=== PATIENT | female | born 1990 | race Caucasian/White ===

== ENCOUNTER 2019-04-23 09:16 | Emergency (ER) | payer SELFPAY ==
[~2019-04-23] VITALS: Ht 175.3 cm; Wt 100.0 kg
[2019-04-23 09:30] VITALS: BP 143/91
== END 2019-04-23 10:00 | disposition left against medical advice (07) ==
LOC: ER 09:16
DX: Z53.21 Procedure and treatment not carried out due to patient leaving prior to being seen by health care provider (principal)